=== PATIENT | male | born 1985 | race Two or more races ===

== ENCOUNTER 2024-04-09 12:51 | Inpatient (IN) | payer BC, SELFPAY ==
[2024-04-09] VITALS (8 sets, daily range): BP systolic 139–151; BP diastolic 88–101; PULSE 67–103; RESP 16–67; TEMP 36.2–37.1; O2SAT 98–100; BMI 25.1; BMI 26.1
--- NOTE | 2024-04-09 13:08 | PC.NURSE ---
Pt. here from home to bed 11 for abdominal pain to right upper abdominal quadrant X 6 days, pt. states he has been vomiting, had blood in his stool yesterday, states that his eyes are yellow today, pt. states his urine has a foul smell to it. Pt. states he couldn't take the pain anymore so he came in. Ice chips given.
--- NOTE | 2024-04-09 13:47 | XR_ITS ---
Examination: CT abdomen with intravenous contrast CT pelvis with intravenous contrast 2-D coronal reconstructions 2-D sagittal reconstructions Date and time of exam:May 10, 2023 1649 hrs. Indications: Abdominal pain nausea vomiting beginning 6 days ago. CTDI: vol (mGy) 8.84 DLP: (mGycm) 426 Technique: Multiple axial sections of the abdomen and pelvis have been obtained. 64 slice high-resolution scanner used. 3 mm axial sections have been obtained, post intravenous injection 60 cc [id number] 2-D sagittal, coronal reconstructions obtained. Low dose protocols were performed. One or more of the following dose reduction techniques were used; automated exposure control, adjustment of the mA and/or KV according to patient size, use of iterative reconstruction technique. Findings: No focal liver or splenic lesions Mucosal thickening involving the stomach Prominent gallbladder no stones Suspicious for mild edema about the pancreas No hydronephrosis Aorta normal size 25 mm fat-containing umbilical hernia No bowel obstruction No pericecal inflammatory change No diverticulitis Mild thickening of the urinary bladder wall Tiny fat-containing left inguinal hernia Impression: Gastritis pattern Suspicious for early acute pancreatitis, consider MRCP follow-up
--- NOTE | 2024-04-09 13:49 | EKG_ITS ---
[facility] Test Date: 2024-04-09 Pat Name: DEENA NICE Department: Room: - Gender: Male Personal Financial Advisor: : 1985 Requested By: Maury Oneal Order Number: [id number] Reading MD: Maury Oneal Measurements Intervals [place] Rate: 67 P: 66 CA: 149 QRS: 61 QRSD: 90 T: 47 QT: 370 QTc: 391 Interpretive Statements SINUS RHYTHM No previous ECG available for comparison /store/S0/[id number]/ecg/[id number].pdf
--- NOTE | 2024-04-09 13:49 | XR_ITS ---
Examination: Abdomen sonogram, Limited Date and time of exam: April 09, 2024 1452 hrs. Indications: Epigastric pain and vomiting beginning 3 days ago Technique: Real-time smith scale transabdominal sonographic images of the upper abdomen obtained. Findings: Negative for cholelithiasis, negative for cholecystitis Normal common bile duct Pancreas obscured by bowel gas Liver 17.3 cm fatty liver no focal liver lesions Normal hepatopedal portal venous flow Patent IVC Impression: Negative for cholelithiasis, negative for cholecystitis Mild hepatomegaly fatty liver
--- NOTE | 2024-04-09 13:49 | PC.NURSE ---
Casper RENTERIA bedside going to do a rectal exam pt. states he does not want me bedside for exam, pt. states he does not want a cup setter lockstitch present. Casper RENTERIA states that's ok and for me to document.
--- NOTE | 2024-04-09 13:51 | PD.EDABDPN ---
ED Abdominal Pain RME/HPI General Chief Complaint: Abdominal Pain Stated complaint: ABDOMINAL PAIN Time seen by provider: 04/09/24 13:14 Arrival date/time: 04/09/24 12:51 RME / HPI RME / HPI narrative: 39-year-old male patient with significant history of chronic alcoholism who came in for evaluation regarding abdominal pain. Patient's been having abdominal pain for the last few days, getting worse, location epigastric area, severity 10 out of 10. Patient is worried because earlier today patient vomited coffee-ground vomitus. And note is also blood in the stool. Patient is a chronic alcoholic. Last drink of alcohol this morning. Related Data Previous Rx's ?Medication ?Instructions ?Recorded pantoprazole 40 mg tablet,delayed 40 mg PO QDAY #30 tabs 02/06/24 release (Protonix) Allergies Allergy/AdvReac Type Severity Reaction Status Date / Time No Known Allergies Allergy Verified 02/06/24 15:26 Review of Systems Review of Systems Narrative Review of Systems: Review of system reviewed and within normal limits except mentioned in HPI ED Exam Narrative Physical exam: VITAL SIGNS: Reviewed. GENERAL APPEARANCE: Alert and interactive, follows commands, no acute distress, HEAD AND FACE: Non-traumatic. ENT: PERRL, pink conjunctivitis, eyelid no trauma, Mucous membrane moist. NECK: Supple, nontender, no nuchal rigidity. CHEST: No tenderness, no crepitus, no paradoxical movement, no retractions. LUNGS: Clear, well ventilated, symmetric, no rales, no wheezing, no ronchi, no stridor, good breath sounds bilaterally. HEART: Regular rate, regular rhythm, no murmur, no gallops. ABDOMEN: Soft, positive bowel sounds, nondistended, no guarding, epigastric tenderness, no rebound, no masses, RECTAL: Deferred. GENITAL: Deferred. NEUROLOGICAL: Gross motor function intact sensory function intact, Appropriate for age. MUSCULOSKELETAL: low back nontender, full range of motion. EXTREMITIES: Nontender, full range of motion. SKIN: Color pink, dry, no rash, no lacerations, no abrasions, no contusions. LYMPHATICS: Deferred. Course Quality Measures none Orders Category Date Time Status COVID-19 Screening Questionnaire NOW Care 04/09/24 19:[address] Screening NOW Care 04/09/24 13:50 Active Decision to Admit X1 Care 04/09/24 19:27 Active EKG (ED ONLY) *Do not use* NOW Care 04/09/24 13:49 Completed Occult Blood,Stool (Nursing) ONCE Care 04/09/24 13:[address] abdomen pelvis w con Stat Exams 04/09/24 13:47 Completed EKG (ED Only) Stat Exams 04/09/24 13:49 Draft US gall bladder Stat Exams 04/09/24 13:49 Completed Alcohol, Blood Medical Stat Lab 04/09/24 14:25 Completed CBC Stat Lab 04/09/24 14:25 Completed Comprehensive Metabolic Panel Stat Lab 04/09/24 14:25 Completed Drug Screen,Urine Stat Lab 04/09/24 16:57 Completed Lipase Stat Lab 04/09/24 14:25 Completed Lipid Panel Stat Lab 04/09/24 14:25 Completed Partial Thromboplastin Time Stat Lab 04/09/24 14:25 Completed Prothrombin Time with INR Stat Lab 04/09/24 14:25 Completed UA [Urinalysis] Stat Lab 04/09/24 16:57 Completed Morphine Inj Med 04/09/24 14:30 Discontinued 5 mg IVP X1 ONE Morphine Inj [Morphine Sulf Inj] Med 04/09/24 13:49 Discontinued 5 mg IVP X1 ONE Ondansetron Inj [Zofran Inj] Med 04/09/24 13:47 Discontinued 4 mg IV X1 ONE Pantoprazole Inj [Protonix Inj] Med 04/09/24 13:47 Discontinued 80 mg IV X1 ONE Sodium Chloride 0.9% 1000 ml [Ns] 1,000 ml Med 04/09/24 13:49 Discontinued IV 999 mls/hr Vital Signs Vital signs: Vital Signs Temperature 98.2 F 04/09/24 12:52 Pulse Rate 103 H 04/09/24 12:52 Respiratory Rate 22 H 04/09/24 12:52 Blood Pressure 147/88 H 04/09/24 12:52 Pulse Oximetry (%) 99 04/09/24 12:52 Oxygen Delivery Method Room Air 04/09/24 12:52 Abdominal Pain MDM MDM Narrative MDM Narrative:: 39-year-old male patient with significant history of chronic alcoholism who came in for evaluation regarding abdominal pain. Patient's been having abdominal pain for the last few days, getting worse, location epigastric area, severity 10 out of 10. Patient is worried because earlier today patient vomited coffee-ground vomitus. And note is also blood in the stool. Patient is a chronic alcoholic. Last drink of alcohol this morning. Laboratory workup is significant for elevated alcohol level of 117. Patient's lipase was noted to be 62. CT scan of the abdomen showed acute mild pancreatitis. Patient still having epigastric pain. Plan of care discussed with the patient and the need to admit for early pancreatitis. And intractable abdominal pain. Patient agrees with the plan. Patient data External records reviewed:: None Clinical information provided by:: patient Social determinants that could affect healthcare access:: alcohol use Patient has the following chronic illnesses:: Chronic alcoholism How is presenting disease/condition affected by chronic disease/condition?: exacerbated by Evaluation data The following diagnostics were reviewed and interpreted by me:: lab results, radiology exam(s) and EKG tracing(s) Lab and/or radiology exams considered but not ordered:: None Interpretation Summary: EKG as interpreted by me showed sinus rhythm, ventricular rate of 67 bpm, no ST segment elevation depression noted. CT scan of the abdomen and pelvis showed Gastritis pattern Suspicious for early acute pancreatitis, consider MRCP follow-up Ultrasound also came back unremarkable. Laboratory workup is significant for alcohol level of 117, lipase is 62. Medications / Prescriptions Medications or Prescriptions considered but not ordered:: None Medication administrations:: Medication Administration History Discontinued Medications Sodium Chloride (Ns) 1,000 mls @ 999 mls/hr IV .Q1H1M ONE Stop: 04/09/24 14:49 Last Infusion: 04/09/24 15:35 Dose: Infused Documented By: Admin: 04/09/24 14:34 Dose: 999 mls/hr Documented By: Morphine Sulfate (Morphine Sulf Inj 4 Mg/Ml Vial) 5 mg IVP X1 ONE Stop: 04/09/24 13:50 Last Admin: 04/09/24 19:04 Dose: Not Given Documented By: ED Non-Admin Reason: Duplicate Medication on eMAR Morphine Sulfate (Morphine Sulf Inj 10 Mg/Ml Vial) 5 mg IVP X1 ONE Stop: 04/09/24 14:31 Last Admin: 04/09/24 14:36 Dose: 5 mg Documented By: Ondansetron HCl (Ondansetron Inj 2 Mg/Ml Inj 2 Ml) 4 mg IV X1 ONE; Protocol Stop: 04/09/24 13:48 Last Admin: 04/09/24 14:31 Dose: 4 mg Documented By: MARIA VICTORIA Pantoprazole Sodium (Pantoprazole Inj 40 Mg Vial) 80 mg IV X1 ONE Stop: 04/09/24 13:48 Last Admin: 04/09/24 14:28 Dose: 80 mg Documented By: MARIA VICTORIA Ibuprofen aches, Zofran, morphine, and IV fluids for hydration. Consultations Consultation(s) initiated? (list below): No Diagnosis Differential diagnosis abdominal pain: abdominal pain, pancreatitis and other (Gastritis) Most likely diagnosis given after review of the tests above:: Acute pancreatitis, gastritis, coffee-ground vomitus, chronic alcoholism Admission Indicated Admission indicated?: indicated Explain why admission is indicated or not indicated:: Patient is to be admitted for early acute pancreatitis, coffee-ground vomitus, and gastritis, chronic alcoholism Admission Request Was there a request for admission?: Yes Admission Attestation Admission request attestation: Discussed case with [Dr. Farmer] from Hospitalist service regarding admission. Discussed patients ED course, exam findings, labs, and radiology results. The Hospitalist [agrees,] to accept the patient for admission. Disposition Plan Disposition Plan: Admit Discharge Plan Plan Patient Disposition: Admit Acute Care w/in Hospital Prescriptions/Referrals Prescriptions/Med Rec: No Action pantoprazole [Protonix] 40 mg tablet,delayed release (DR/EC) 40 mg PO QDAY Qty: 30 0RF Referrals: Jana Dominguez MD [Primary Care Provider] - In 1 week Problem List Clinical Impression: Acute alcoholic pancreatitis, Gastritis, Coffee ground vomiting Patient/Caregiver Discharge Instructions Print Language: Bur[place]ian Stand Alone Forms: Jocelin Award Info., Patient Portal Info Letter
[2024-04-09] MEDS: PANTOPRAZOLE INJ 40 MG VIAL 80 MG IV (14:28)
[2024-04-09] MEDS: ONDANSETRON INJ 2 MG/ML INJ 2 ML 4 MG IV (14:31)
[2024-04-09] MEDS: SODIUM CHLORIDE 0.9% 1000 ML 1,000 ML 999 ML IV (14:34)
[2024-04-09] MEDS: MORPHINE SULF INJ 10 MG/ML VIAL 5 MG IVP (14:36)
[2024-04-09 14:52] LABS: Alanine Aminotransferase 54 U/L (10-49); Albumin, Serum 4.8 gm/dL (3.5-5.0); Albumin/Globulin Ratio 2.3 (1.2-2.2); Alcohol, Blood Medical 117.5 mg/dL (0-10.0); Alkaline Phosphatase 77 U/L (46-116); Anion Gap 10 (7-16); Aspartate Amino Transferase 52 U/L (0-34); BUN/Creatinine Ratio 15 Ratio (12-20); Bilirubin,Total 1.1 mg/dL (0.3-1.2); Blood Urea Nitrogen 15 mg/dL (9-23); Calcium 9.9 mg/dL (8.3-10.6); Calcium (Corrected) 9.9 mg/dL (8.5-10.1); Carbon Dioxide 27.5 mMol/L (20.0-31.0); Chloride 99 mMol/L (98-107); Estimated Creatinine Clearance 101.4 mL/min (>60); Globulin 2.1 gm/dL (2.3-3.5); Glucose 136 mg/dL (74-106); Lipase 62 U/L (12-53); Osmolality,Calculated 274 (275-295); Potassium 4.1 mMol/L (3.4-5.1); Sodium 136 mMol/L (136-145); Total Protein 6.9 gm/dL (5.7-8.2); eGFR > 60 See Note
[2024-04-09 15:01] LABS: Basophils % (Auto) 1 % (0-2.5); Eosinophils % (Auto) 0 % (0-10); Hematocrit 42.2 % (41.0-53.0); Hemoglobin 15.6 g/dL (13.5-16.0); Immature Granulocytes % (Auto) 0 % (0-0); Immature Granulocytes Auto 0.01 Thou/mm3 (0.00-0.00); Lymphocytes # (Auto) 2.1 Thou/mm3 (1.0-4.8); Lymphocytes % (Auto) 27 % (10-50); Mean Corpuscular Hemoglobin 29.7 pg (25.0-35.0); Mean Corpuscular Volume 80 fL (80-100); Monocytes # (Auto) 0.3 Thou/mm3 (0.0-0.8); Monocytes % (Auto) 4 % (0-12); Neutrophils # (Auto) 5.3 Thou/mm3 (1.8-7.7); Neutrophils % (Auto) 69 % (37-80); Nucleated Red Blood Cell % 0 /100 WBC (0); Platelet Count 182 Thou/mm3 (140-440); RDW Standard Deviation 34.8 fL (35.1-43.9); Red Blood Count 5.26 Miln/mm3 (4.50-5.90); White Blood Count 7.7 Thou/mm3 (3.8-10.6)
[2024-04-09 15:09] LABS: INR 1.4 (0.9-1.3); Partial Thromboplastin Time 26.6 Seconds (22.0-36.0); Prothrombin Time 14.6 Seconds (9.0-12.2)
[2024-04-09 15:13] LABS: Cardiac Risk Estimate 2.5 RATIO (4.0-6.7); Cholesterol 111 mg/dL (132-200); HDL Cholesterol 45 mg/dL (40-60); LDL Cholesterol,Calculated -13 mg/dL (0-130); Triglycerides 394 mg/dL (30-150)
[2024-04-09 17:14] LABS: Collection Type, Urine Clean Catch; RBC,Urine 0 /hpf (0-3); Squamous Epithelial Cell,Urine 0 /hpf (0-5); WBC,Urine 0 /hpf (0-5)
[2024-04-09 17:33] LABS: Amorphous Crystals,Urine Present (Absent); Bilirubin,Urine Negative (Negative); Blood,Urine Negative (Negative); Glucose, Urine Negative (Negative); Ketones,Urine Negative (Negative); Leukocyte Esterase,Urine Negative (Negative); Nitrite,Urine Negative (Negative); Protein,Urine Trace (Neg - Trace); Specific Gravity,Urine 1.017 (1.001-1.035); Urobilinogen,Urine Negative mg/dL (0.0-1.0)
[2024-04-09 17:36] LABS: Clarity,Urine Turbid (Clear/Hazy); Color,Urine Yellow (Lt Yel-Yel)
[2024-04-09 17:37] LABS: Amphetamine/Methamp Scrn,U Negative (Negative); Barbiturate Screen,Urine Negative (Negative); Benzodiazepines Screen,Urine Negative (Negative); Benzoylecgonine Screen, Ur Negative (Negative); Fentanyl Screen,Urine Negative (Negative); Opiate Screen,Urine Positive (Negative); THC Screen,Urine Negative (Negative)
--- NOTE | 2024-04-09 20:40 | PD.RESHP ---
Documentation for date of: 04/09/24 [facility] History of Present Illness History of present illness: The patient is a 39-year-old male with a history of anxiety and alcohol use who presented to the ED on 04/09/2024 with complaints of abdominal pain, nausea and vomiting started about 5 days ago. Patient reports that pain which is why he taken 5 days mostly located in the epigastrium and periumbilical region, with some occasional radiation to the right upper quadrant but no radiation to the back. He also endorses nausea and consistent vomiting for the past 5 days, loss of appetite and no bowel movement. Additionally, patient reports that on day 3 he started to notice some coffee-ground vomiting and dark stool, attributing it to multiple bouts and increased intensity of vomiting. Per patient, he avoids going to doctors which is why it took 5 days to present to the ED especially with the added possible blood in his vomitus. Last episode of vomiting was just before presentation to the hospital. Patient endorses drinking heavily over the past couple days since he lost his job and mentions that he has been drinking since he was 15 and occasionally stops but has been drinking a lot more in the last week. Since his symptoms started 5 days ago he has continued drinking because he thought that it helped his symptoms albeit temporarily, last drink was in the early hours of today. He reports having similar episode in the past when he was about 19 years old and also the time that he had acute pancreatitis. He denied fever, chills, diarrhea. ED course: In the ED, patient was noted to be afebrile, normotensive and saturating 99% on room air. Labs showed WBC 7.7 Hgb 15.6 PLT 182 PT 14.6 INR 1.4 NA 130 6K4.1 CL 99 bicarb 27.5 BUN 15 CR 1.0 glucose 136 triglyceride 394 LDL -13 lipase 62 UA showed a pH of 8 and amorphous crystals, U-Tox is positive for opioids and through alcohol level of 117.5. CT abdomen pelvis was done showed early acute pancreatitis and gallbladder ultrasound was negative for cholelithiasis or cholecystitis. In the ED, patient received morphine and Zofran as well as 1 L of NS. He is being admitted for management of acute pancreatitis. Review of Systems Review of Systems Narrative Review of Systems: GENERAL: Denies fevers/chills or diaphoresis. HEENT: Denies headache or visual/hearing changes. Denies nasal discharge. NEURO: Denies unusual weakness or difficulty speaking. CARDIO: Denies chest pain or palpitations. PULM: Denies SOB, coughing, or wheezing. GI: Admits abdominal pain, nausea and vomiting, coffee-ground vomiting, melena. URO: Denies burning/itching/pain/urinary changes. MSK/EXT/SKIN: Denies joint/skeletal/muscle pain, issues/changes in upper or lower extremities, itchiness, or superficial pain. PSYCH: Cooperative, pleasant mood & affect. Exam Vital Signs Temp Pulse Resp BP Pulse Ox O2 Del Method 98.6 F 68 67 H 144/101 H 99 Room Air 04/09/24 20:00 04/09/24 20:00 04/09/24 20:00 04/09/24 20:00 04/09/24 20:00 04/09/24 20:00 Narrative Exam GENERAL: AAOX3 NEURO: CHIROPRACTIC NEUROLOGIST grossly intact, moves extremities x4 HEENT: Moist mucosa. Eyes open, symmetrical, & clear CARDIO: No chest pain on palpation. Heart RRR, no obvious murmurs PULM: No noted coughing/dyspnea. Lungs CTA B/L, no R/W/R GI: Abdomen soft, bloatedness, tenderness to palpation in the epigastrium and umbilical region. URO/SOCIAL SCIENCES RESEARCH SCIENTIST:: No further abnormalities noted. SKIN/MSK/EXT: No wounds/rashes/edema/amputations, no pain on palpation. Pedal pulses present B/L Results: Labs 04/10/24 04:49 04/10/24 04:49 Labs: Short CBC 04/09/24 Range/Units 14:25 WBC 7.7 (3.8-10.6) Thou/mm3 Hgb 15.6 (13.5-16.0) g/dL Hct 42.2 (41.0-53.0) % Plt Count 182 (140-440) Thou/mm3 BMP 04/09/24 14:25 Sodium 136 Potassium 4.1 Chloride 99 Carbon Dioxide 27.5 BUN 15 Creatinine 1.0 Glucose 136 H Calcium 9.9 Liver Function 04/09/24 Range/Units 14:25 Total Bilirubin 1.1 (0.3-1.2) mg/dL AST 52 H (0-34) U/L ALT 54 H (10-49) U/L Alkaline Phosphatase 77 (46-116) U/L Albumin 4.8 (3.5-5.0) gm/dL Urine 04/09/24 Range/Units 16:57 Urine Color Yellow (Lt Yel-Yel) Urine Clarity Turbid A (Clear/Hazy) Urine pH 8.0 H (5.0-7.0) Ur Specific [place] 1.017 (1.001-1.035) Urine Protein Trace (Neg - Trace) Urine Glucose (UA) Negative (Negative) Quality Measures Quality Measures none Medications Home Medications and Allergies Allergies Allergy/AdvReac Type Severity Reaction Status Date / Time No Known Allergies Allergy Verified 02/06/24 15:26 Visit Medications Acetaminophen (Acetaminophen 325 Mg Tablet) 650 mg PO Q6H PRN PRN Reason: Pain (1-3) or Fever >100.3 Stop: 05/09/24 20:18 Hydrocodone Bitart/Acetaminophen (Hydrocodone/Apap 5/325 Tablet) 1 tab PO Q4HR PRN PRN Reason: Pain Scale 4-10 (Moderate-donovan Stop: 04/14/24 20:23 Sodium Chloride (Ns) 1,000 mls @ 150 mls/hr IV .Q6H40M ONE Stop: 04/10/24 03:09 Ondansetron HCl (Ondansetron Inj 2 Mg/Ml Inj 2 Ml) 4 mg IV Q6H PRN; Protocol PRN Reason: NAUSEA OR VOMITING Stop: 05/09/24 20:18 Sennosides (Senna Tablet) 1 tab PO QDAY YURIY; Protocol Stop: 05/10/24 08:59 Discontinued Medications Sodium Chloride (Ns) 1,000 mls @ 999 mls/hr IV .Q1H1M ONE Stop: 04/09/24 14:49 Last Infusion: 04/09/24 15:35 Dose: Infused Morphine Sulfate (Morphine Sulf Inj 4 Mg/Ml Vial) 5 mg IVP X1 ONE Stop: 04/09/24 13:50 Last Admin: 04/09/24 19:04 Dose: Not Given Morphine Sulfate (Morphine Sulf Inj 10 Mg/Ml Vial) 5 mg IVP X1 ONE Stop: 04/09/24 14:31 Last Admin: 04/09/24 14:36 Dose: 5 mg Ondansetron HCl (Ondansetron Inj 2 Mg/Ml Inj 2 Ml) 4 mg IV X1 ONE; Protocol Stop: 04/09/24 13:48 Last Admin: 04/09/24 14:31 Dose: 4 mg Pantoprazole Sodium (Pantoprazole Inj 40 Mg Vial) 80 mg IV X1 ONE Stop: 04/09/24 13:48 Last Admin: 04/09/24 14:28 Dose: 80 mg Assessment & Plan Assessment Summary: The patient is a 39-year-old male with a history of anxiety and alcohol use presented to the ED on 04/09/2024 with complaints of abdominal pain, nausea and vomiting started about 5 days ago. Imaging positive for signs of acute pancreatitis. #Acute pancreatitis #Alcohol use disorder #Coffee-ground emesis The patient presented with a 5-day history of abdominal pain, nausea and vomiting that started after a long period of drinking due to the fact that he lost his job. On day 3, patient noticed some coffee-ground vomiting with increased bouts and intensity as well as melena although he is not sure what he saw. He reports having similar episode in the past when he was about 19 years old and also the time that he had acute pancreatitis. He has been binge drinking about the past week and continued evident that the symptoms started as a seem to help temporarily, last drink was in the early hours of today. CBC was unremarkable, CMP showed slightly elevated liver enzymes and triglyceride of 394. U tox positive for opioids (patient received morphine) and negative alcohol level of, 7.5. CT abdomen pelvis showed suspicion for early pancreatitis and gallbladder ultrasound was negative. Patient received morphine and 1 L of NS and Zofran in ED. Patient wants to start on clear liquid diet as she has been able to tolerate fluids all day. Plan: -Admit to med telemetry -IV fluids at 150 cc/h -Clear liquid diet, advance as tolerated -Pain management with [place] (patient does not want morphine unless absolutely necessary) -Zofran as needed -Pantoprazole 40 mg daily -[facility] protocol -Continue to monitor H&H, consider GI consult if downtrending or coffee-ground emesis continues. Health maintenance: Dispo: MedTele Diet: Clear liquid GI: Pantoprazole DVT: SCD (Abnormal PT, INR) Lines: Peripheral PT: Not ordered Code: Full Case was discussed with attending physician, Dr Sejal Dupont MD PGY-1 Attending Provider Attestation/Addendum 39-year-old male patient with alcoholism presented with coffee-ground emesis, abdominal pain mainly in the epigastric region. Patient denies weight loss. Patient has minimally elevated lipase level. He will be admitted. Patient will be referred to GI. He will start on Protonix IV.
[2024-04-09 20:55] LABS: Magnesium 1.9 mg/dL (1.6-2.6); Phosphorous 2.9 mg/dL (2.4-5.1)
[2024-04-09] MEDS: FOLIC ACID 1 MG TABLET PO (21:04)
[2024-04-09] MEDS: THIAMINE 100 MG TABLET PO (21:04)
[2024-04-09] MEDS: HYDROcodone/APAP 5/325 TABLET 1 TAB PO (21:22)
[2024-04-09] MEDS: SODIUM CHLORIDE 0.9% 1000 ML 1,000 ML 150 ML IV (22:25)
[2024-04-10] VITALS (12 sets, daily range): BP systolic 140–158; BP diastolic 91–102; PULSE 57–88; RESP 16–98; TEMP 36.1–36.8; O2SAT 95–99
[2024-04-10] MEDS: HYDROcodone/APAP 5/325 TABLET 1 TAB PO ×4 (02:12→20:43)
[2024-04-10 05:43] LABS: Basophils % (Auto) 0 % (0-2.5); Eosinophils # (Auto) 0.1 Thou/mm3 (0.0-0.5); Eosinophils % (Auto) 1 % (0-10); Hematocrit 38.2 % (41.0-53.0); Hemoglobin 14.2 g/dL (13.5-16.0); Immature Granulocytes % (Auto) 0 % (0-0); Immature Granulocytes Auto 0.03 Thou/mm3 (0.00-0.00); Lymphocytes # (Auto) 2.8 Thou/mm3 (1.0-4.8); Lymphocytes % (Auto) 30 % (10-50); Mean Corpuscular HGB Conc 37.2 g/dl (31.0-37.0); Mean Corpuscular Hemoglobin 30.4 pg (25.0-35.0); Mean Corpuscular Volume 82 fL (80-100); Monocytes # (Auto) 0.5 Thou/mm3 (0.0-0.8); Monocytes % (Auto) 5 % (0-12); Neutrophils # (Auto) 5.8 Thou/mm3 (1.8-7.7); Neutrophils % (Auto) 63 % (37-80); Nucleated Red Blood Cell % 0 /100 WBC (0); Platelet Count 144 Thou/mm3 (140-440); RDW Standard Deviation 35.8 fL (35.1-43.9); Red Blood Count 4.67 Miln/mm3 (4.50-5.90); White Blood Count 9.2 Thou/mm3 (3.8-10.6)
[2024-04-10 06:07] LABS: Alanine Aminotransferase 41 U/L (10-49); Albumin, Serum 4.2 gm/dL (3.5-5.0); Albumin/Globulin Ratio 2.2 (1.2-2.2); Alkaline Phosphatase 65 U/L (46-116); Anion Gap 7 (7-16); Aspartate Amino Transferase 36 U/L (0-34); BUN/Creatinine Ratio 13 Ratio (12-20); Bilirubin,Total 1.6 mg/dL (0.3-1.2); Blood Urea Nitrogen 13 mg/dL (9-23); Carbon Dioxide 27.1 mMol/L (20.0-31.0); Chloride 100 mMol/L (98-107); Estimated Creatinine Clearance 101.4 mL/min (>60); Globulin 1.9 gm/dL (2.3-3.5); Glucose 113 mg/dL (74-106); Magnesium 1.7 mg/dL (1.6-2.6); Osmolality,Calculated 269 (275-295); Phosphorous 3.2 mg/dL (2.4-5.1); Potassium 4.5 mMol/L (3.4-5.1); Sodium 134 mMol/L (136-145); Thyroid Stimulating Hormone 5.82 uIU/mL (0.55-4.78); Total Protein 6.1 gm/dL (5.7-8.2); eGFR > 60 See Note
[2024-04-10 06:37] LABS: INR 1.3 (0.9-1.3); Partial Thromboplastin Time 26.7 Seconds (22.0-36.0); Prothrombin Time 13.9 Seconds (9.0-12.2)
[2024-04-10] MEDS: FOLIC ACID 1 MG TABLET PO ×2 (08:11→20:38)
[2024-04-10] MEDS: SENNA TABLET 1 TAB PO (08:11)
[2024-04-10] MEDS: THIAMINE 100 MG TABLET PO ×2 (08:11→20:38)
[2024-04-10] MEDS: PANTOPRAZOLE INJ 40 MG VIAL IV ×2 (08:11→20:38)
--- NOTE | 2024-04-10 08:12 | PD.RESPRO ---
Documentation for date of: 04/10/24 Subjective Subjective Interval history: No acute overnight events. Has mild bilateral upper extremity tremor, no seizure activity. Tolerating soft diet without nausea or vomiting. Denies fever, chills, headaches, chest pain, sob, cough, GI or urinary symptoms. Exam Vital Signs Temp Pulse Resp BP Pulse Ox O2 Del Method 97.0 F 57 L 18 144/91 H 99 Room Air 04/10/24 08:00 04/10/24 08:00 04/10/24 08:00 04/10/24 08:00 04/10/24 08:00 04/10/24 08:00 Narrative Exam GENERAL: Normal appearing adult male, mild distress due to pain. HEENT: NCAT.?SELVIN. Oral mucosa is moist. Patent Nares NECK: Supple, nontender, no thyromegaly, no meningismus, no JVD, no step offs CHEST: Symmetrical, atraumatic, and with equal expansion, Nontender on palpation no deformity and no crepitus. CARDIOVASCULAR: RRR, no m/g/r LUNGS: CTAB, no w/r/r. Symmetrical chest rise. No intercostal subcostal retraction. ABDOMEN: Soft, flat, nontender. No guarding/rebound tenderness/masses. +BS EXTREMITIES: Nontender.? No edema/cyanosis.?Moves all 4 extremities well, with full ROM and good CSM. SKIN: Warm and dry, no jaundice/rashes. MSK: No lumbar or midline, no CVA, no paraspinal muscle spasm or tenderness. NEURO: RAZA x4, CN II-XII grossly intact.?No focal neurologic deficits. PSYCHIATRIC: Normal mood and affect, cooperative, no SI or HI or hallucinations. Objective Labs 04/11/24 05:36 04/11/24 05:36 Labs: Laboratory Results - last 24 hr 04/09/24 04/09/24 04/10/24 14:25 16:57 04:49 WBC 7.7 9.2 RBC 5.26 4.67 Hgb 15.6 14.2 Hct 42.2 38.2 L MCV 80 82 MCH 29.7 30.4 MCHC 37.0 37.2 H RDW Std Deviation 34.8 L 35.8 Plt Count 182 144 D Neut % (Auto) 69 63 Lymph % (Auto) 27 30 [place] % (Auto) 4 5 Eos % (Auto) 0 1 Baso % (Auto) 1 0 Neut # (Auto) 5.3 5.8 Lymph # (Auto) 2.1 2.8 [place] # (Auto) 0.3 0.5 Eos # (Auto) 0.0 0.1 Baso # (Auto) 0.0 0.0 Immature Gran # (Auto) 0.01 H 0.03 H Absolute Nucleated RBC 0.00 0.00 Immature Gran % 0 0 Nucleated RBC % 0 0 PT 14.6 H 13.9 H INR 1.4 H 1.3 APTT 26.6 26.7 Sodium 136 134 L Potassium 4.1 4.5 Chloride 99 100 Carbon Dioxide 27.5 27.1 Anion Gap 10 7 BUN 15 13 Creatinine 1.0 1.0 Estim Creat Clear Calc 101.4 101.4 eGFR > 60 > 60 BUN/Creatinine Ratio 15 13 Glucose 136 H 113 H Calculated Osmolality 274 L 269 L Calcium 9.9 9.0 Corrected Calcium 9.9 9.0 Phosphorus 2.9 3.2 Magnesium 1.9 1.7 Total Bilirubin 1.1 1.6 H D AST 52 H 36 H ALT 54 H 41 Alkaline Phosphatase 77 65 Total Protein 6.9 6.1 Albumin 4.8 4.2 D Globulin 2.1 L 1.9 L Albumin/Globulin Ratio 2.3 H 2.2 Triglycerides 394 H Cholesterol 111 L LDL Cholesterol, Calc -13 L HDL Cholesterol 45 Cholesterol/HDL Ratio 2.5 L Lipase 62 H TSH 5.82 H Ur Collection Type Clean Catch Urine Color Yellow Urine Clarity Turbid A Urine pH 8.0 H Ur Specific [place] 1.017 Urine Protein Trace Urine Glucose (UA) Negative Urine Ketones Negative Urine Blood Negative Urine Nitrite Negative Urine Bilirubin Negative Urine Urobilinogen (Auto) Negative Ur Leukocyte Esterase Negative Urine RBC 0 Urine WBC 0 Ur Squamous Epith Cells 0 Amorphous Crystals Present A Urine Bacteria None Urine Opiates Screen Positive A Urine Fentanyl Screen Negative Ur Barbiturates Screen Negative U Amphetamin/Meth Scrn Negative U Benzodiazepines Scrn Negative U Cocaine Metab Screen Negative U Marijuana (THC) Screen Negative Ethyl Alcohol 117.5 H Quality Measures Quality Measures none Assessment & Plan Assessment Current Active Medications: Generic Name Dose Route Start Last Admin Trade Name Freq PRN Reason Stop Dose Admin Acetaminophen 650 mg 04/09/24 20:19 Acetaminophen 325 Mg Tablet PO 05/09/24 20:18 Q6H PRN Pain (1-3) or Fever >100.3 Hydrocodone Bitart/Acetaminophen 1 tab 04/09/24 20:24 04/10/24 06:38 Hydrocodone/Apap 5/325 Tablet PO 04/14/24 20:23 1 tab Q4HR PRN Administration Pain Scale 4-10 (Moderate-donovan Folic Acid 1 mg 04/09/24 21:00 04/10/24 08:11 Folic Acid 1 Mg Tablet PO 04/14/24 20:59 1 mg BID YURIY Administration Lorazepam 0.5 mg 04/09/24 20:47 Lorazepam 0.5 Mg Tablet PO 04/14/24 20:46 Q4HR PRN CIWA Score 2-6 Lorazepam 1 mg 04/10/24 04:21 Lorazepam 0.5 Mg Tablet PO 04/15/24 04:20 Q4HR PRN CIWA SCORE 7-11 Lorazepam 2 mg 04/10/24 04:21 Lorazepam 0.5 Mg Tablet PO 04/15/24 04:20 Q4HR PRN CIWA SCORE 12-15 Ondansetron HCl 4 mg 04/09/24 20:19 Ondansetron Inj 2 Mg/Ml Inj 2 Ml IV 05/09/24 20:18 Q6H PRN NAUSEA OR VOMITING Protocol Pantoprazole Sodium 40 mg 04/10/24 09:00 04/10/24 08:11 Pantoprazole Inj 40 Mg Vial IV 05/10/24 08:59 40 mg BID YURIY Administration Sennosides 1 tab 04/10/24 09:00 04/10/24 08:11 Senna Tablet PO 05/10/24 08:59 1 tab QDAY YURIY Administration Protocol Thiamine HCl 100 mg 04/09/24 21:00 04/10/24 08:11 Thiamine 100 Mg Tablet PO 04/14/24 20:59 100 mg BID YURIY Administration Plan In summary: 39-year-old male with a history of anxiety and alcohol use presented to the ED on 04/09/2024 with complaints of abdominal pain, nausea and vomiting started about 5 days ago, admitted for acute pancreatitis and possible GI bleed. # Acute pancreatitis # Alcohol use disorder Chronic alcohol user, daily, admitted to binge drinking last 5 days 5 days of abdominal pain, nausea and vomiting ground coffee emesis and dark stool U tox positive for opiates, alcohol 117.5 CT abdomen early pancreatitis, gallbladder ultrasound negative Triglyceride 394 Patient did not tolerate MORPHINE, preferred NORCO ? Med/tele ? IV fluid at 150 cc/hour ? Continue ZOFRAN PRN ? Continue PROTONIX 40 mg daily ? CIWA protocol ? Given one-time LORAZEPAM for tremors ? Added DILTIAZEM 10 mg x 1 PRN for CIWA >17 ? Advance diet as tolerated ? Give banana bag one-time ? Consulted on alcohol cessation # Coffee-ground emesis 5 days abdominal pain, nausea/vomiting, ground coffee emesis Single episode of dark stool prior to admission, had normal BM this morning No history of liver disease, likely variceal bleed, no indication for OCTREOTIDE at this time Hemoglobin 14.2 ? Continue PROTONIX 40 mg daily ? Started OCTRIOTIDE ggt per GI ? GI consulted, appreciate recommendations ? Medical blood test # Elevated blood pressure No history of hypertension, BP 147/88 on admission, currently 140/91 DDx: Reactive versus primary hypertension ? Continue monitoring ? Consider ANTIHYPERTENSIVE as indicated # Hypothyroidism TSH 5.83, sick thyroid syndrome vs true hypothyroidism ? Follow-up free T4 # HTN, New Onset BP consistently elevated, 149/99 ? Started LISINOPRIL 10 mg daily ? Daily vitals Health maintenance Diet: NPO GI prophylaxis: PROTONIX DVT prophylaxis: SCDs Antibiotics: None CODE STATUS: Full code Disposition: Pending EGD Patient case was discussed with attending, Hipolito Harrison MD and senior residents Dr. Del Rosario and Dr. Croft. Rosa M Barber DO PGYI Attending Provider Attestation/Addendum I reviewed labs, imaging, EKG, home medications and prior available records. Face to face evaluation was performed by me. I have personally examined the patient and discussed assessment and plan with the IM team. I reviewed the resident note and agree with the plan with exceptions as below. Acute pancreatitis: Alcohol induced. Started IV hydration. Management of pain/nausea as needed. Counseled the patient regarding the importance of alcohol cessation. Upper GI bleed: Started the patient on PPI twice daily. Consulted GI for EGD. Abnormal TSH: Ordered free T4. Alcohol abuse: Counseled the patient regarding the importance of alcohol cessation. CIWA monitoring. Start thiamine and folic acid.
[2024-04-10] MEDS: LORazepam 2 MG/ML VIAL IVP (09:25)
[2024-04-10] MEDS: Magnesium Sulfate 2 GM Ivpb 2 GM/50 ML BAG IV (09:25)
[2024-04-10] MEDS: DIAZEPAM INJ 5 MG/ML VIAL 2 ML 10 MG IVP (09:25)
--- NOTE | 2024-04-10 11:29 | PD.IMCONS ---
HPI Data of Consult Requesting Physician: Armando Post MD Primary Care Provider: Jana Dominguez MD Consult Narrative Reason for consult: Coffee-ground hematemesis History of present illness: 39 years old male who has a longstanding history of alcohol abuse presented to hospital with coffee-ground hematemesis and abdominal pain Patient is lipase level was 62 CT scan of the abdomen pelvis with contrast showed pancreatitis However gallbladder ultrasound shows no cholelithiasis cc:: cc: Armando Post MD Review of Systems Review of Systems Systems Reviewed: All systems reviewed, normal except as documented Past Medical History Surgical History OTHER SURGICAL HX: As in history of present illness Meds Home Medications and Allergies Allergies Allergy/AdvReac Type Severity Reaction Status Date / Time No Known Allergies Allergy Verified 02/06/24 15:26 Exam Vital Signs Temp Pulse Resp BP Pulse Ox O2 Del Method 97.0 F 57 L 18 144/91 H 99 Room Air 04/10/24 08:00 04/10/24 08:00 04/10/24 08:00 04/10/24 08:00 04/10/24 08:00 04/10/24 08:00 Constitutional Comments: Alert oriented Routine Respiratory Exam Comments: Normal to auscultation Routine Abdominal Exam Comments: Soft midepigastric tenderness Results Labs 04/10/24 04:49 04/10/24 04:49 Labs: Short CBC 04/09/24 04/10/24 Range/Units 14:25 04:49 WBC 7.7 9.2 (3.8-10.6) Thou/mm3 Hgb 15.6 14.2 (13.5-16.0) g/dL Hct 42.2 38.2 L (41.0-53.0) % Plt Count 182 144 D (140-440) Thou/mm3 BMP 04/09/24 04/10/24 14:25 04:49 Sodium 136 134 L Potassium 4.1 4.5 Chloride 99 100 Carbon Dioxide 27.5 27.1 BUN 15 13 Creatinine 1.0 1.0 Glucose 136 H 113 H Calcium 9.9 9.0 Liver Function 04/09/24 04/10/24 Range/Units 14:25 04:49 Total Bilirubin 1.1 1.6 H D (0.3-1.2) mg/dL AST 52 H 36 H (0-34) U/L ALT 54 H 41 (10-49) U/L Alkaline Phosphatase 77 65 (46-116) U/L Albumin 4.8 4.2 D (3.5-5.0) gm/dL Urine 04/09/24 Range/Units 16:57 Urine Color Yellow (Lt Yel-Yel) Urine Clarity Turbid A (Clear/Hazy) Urine pH 8.0 H (5.0-7.0) Ur Specific [place] 1.017 (1.001-1.035) Urine Protein Trace (Neg - Trace) Urine Glucose (UA) Negative (Negative) Assessment and Plan Additional Assessment & Plan Additional Plan: # Coffee-ground hematemesis in the setting of alcohol abuse Differential diagnosis include # Gastric mucosal bleeding due to chronic abuse of alcohol resulting in hypertensive portal gastropathy # Possible esophageal variceal bleed # Gabi-Wilkins tear # Peptic ulcer disease # Alcohol induced pancreatitis Plan IV Protonix Octreotide infusion Serial CBC Consent obtained for fiberoptic esophagogastroduodenoscopy with possible therapeutic intervention possible biopsy under intravenous moderate sedation scheduled for tomorrow I was called to do the case today however patient was felt and there is not enough n.p.o. interval to do the procedure safely as the risk of aspiration would be high Complete abstain from alcohol Thank you very much for the opportunity to participate in the care of this patient
--- NOTE | 2024-04-10 13:25 | PC.NURSE ---
report given to Shahnaz PRETTY from Endoscopy, all questions answered.
--- NOTE | 2024-04-10 14:11 | PC.NURSE ---
per Shahnaz PRETTY from Endo, pt to have EGD tomorrow 04/11.
[2024-04-10] MEDS: LORazepam 0.5 MG TABLET 2 MG PO ×2 (15:09→20:38)
[2024-04-10] MEDS: ONDANSETRON INJ 2 MG/ML INJ 2 ML 4 MG IV (17:42)
[2024-04-10] MEDS: LORazepam 0.5 MG TABLET PO (18:01)
[2024-04-10] MEDS: Lisinopril 2.5 MG TABLET 10 MG PO (18:01)
[2024-04-10] MEDS: OCTREOTIDE ACET INJ 1,000 MCG in SODIUM CHLORIDE 0.9% 100 ML 5.1 MCG IV (18:03)
[2024-04-11] VITALS (22 sets, daily range): BP systolic 103–150; BP diastolic 66–105; PULSE 71–136; RESP 9–98; TEMP 35.9–36.9; O2SAT 96–99; BMI 26.0
[2024-04-11] MEDS: LORazepam 0.5 MG TABLET 2 MG PO ×4 (03:14→21:57)
[2024-04-11] MEDS: HYDROcodone/APAP 5/325 TABLET 1 TAB PO ×2 (04:17→13:26)
[2024-04-11 06:13] LABS: Basophils % (Auto) 0 % (0-2.5); Eosinophils # (Auto) 0.1 Thou/mm3 (0.0-0.5); Eosinophils % (Auto) 1 % (0-10); Hemoglobin 15.4 g/dL (13.5-16.0); Immature Granulocytes % (Auto) 0 % (0-0); Immature Granulocytes Auto 0.03 Thou/mm3 (0.00-0.00); Lymphocytes # (Auto) 1.4 Thou/mm3 (1.0-4.8); Lymphocytes % (Auto) 19 % (10-50); Mean Corpuscular HGB Conc 36.7 g/dl (31.0-37.0); Mean Corpuscular Hemoglobin 29.9 pg (25.0-35.0); Mean Corpuscular Volume 82 fL (80-100); Monocytes # (Auto) 0.4 Thou/mm3 (0.0-0.8); Monocytes % (Auto) 5 % (0-12); Neutrophils # (Auto) 5.5 Thou/mm3 (1.8-7.7); Neutrophils % (Auto) 74 % (37-80); Nucleated Red Blood Cell % 0 /100 WBC (0); Platelet Count 120 Thou/mm3 (140-440); RDW Standard Deviation 35.8 fL (35.1-43.9); Red Blood Count 5.15 Miln/mm3 (4.50-5.90); White Blood Count 7.4 Thou/mm3 (3.8-10.6)
[2024-04-11 06:40] LABS: Alanine Aminotransferase 29 U/L (10-49); Albumin, Serum 4.5 gm/dL (3.5-5.0); Albumin/Globulin Ratio 2.1 (1.2-2.2); Alkaline Phosphatase 91 U/L (46-116); Anion Gap 8 (7-16); Aspartate Amino Transferase 19 U/L (0-34); BUN/Creatinine Ratio 10 Ratio (12-20); Bilirubin,Total 1.6 mg/dL (0.3-1.2); Blood Urea Nitrogen 10 mg/dL (9-23); Calcium 9.5 mg/dL (8.3-10.6); Calcium (Corrected) 9.5 mg/dL (8.5-10.1); Carbon Dioxide 26.9 mMol/L (20.0-31.0); Chloride 96 mMol/L (98-107); Estimated Creatinine Clearance 101.4 mL/min (>60); Free T4 (Free Thyroxine) 1.69 ng/dL (0.89-1.76); Globulin 2.1 gm/dL (2.3-3.5); Glucose 162 mg/dL (74-106); Magnesium 2.1 mg/dL (1.6-2.6); Osmolality,Calculated 265 (275-295); Phosphorous 3.2 mg/dL (2.4-5.1); Potassium 4.3 mMol/L (3.4-5.1); Sodium 131 mMol/L (136-145); Total Protein 6.6 gm/dL (5.7-8.2); eGFR > 60 See Note
--- NOTE | 2024-04-11 07:57 | ESPR_ITS ---
<Statement entered by Julius Del Rosario MD - 04/12/24 08:07> Patient was seen and examined by me personally. I agree with most of the assessment and plan as discussed with the architecture internship physician, and my attending, Dr. Harrison. Vitals, labs reviewed. Patient endorses abdominal pain. CIWA 5 at bedside, continue with protocol. Counseled extensively against using alcohol. Follow up EGD, continue octreotide x 5days. Elevated BP may be new onset hypertension vs elevation secondary to pain vs EtOH withdrawal. Julius Del Rosario MD, PGY-3 Documentation for date of: 04/11/24 Subjective Subjective Interval history: No acute overnight events. Nausea with eating, vomited x1 stomach content without blood. Pain relatively controlled with current regimen. Denies fever, chills, headaches, chest pain, sob, cough, other GI or urinary symptoms. CIWA 5, no withdrawal symptoms. Exam Vital Signs Temp Pulse Resp BP Pulse Ox O2 Del Method 97.7 F 89 19 138/102 H 98 Room Air 04/11/24 07:54 04/11/24 07:54 04/11/24 07:54 04/11/24 07:54 04/11/24 07:54 04/11/24 07:54 Narrative Exam GENERAL: Normal appearing adult male, mild distress due to pain. HEENT: NCAT.?SELVIN. Oral mucosa is moist. Patent Nares NECK: Supple, nontender, no thyromegaly, no meningismus, no JVD, no step offs CHEST: Symmetrical, atraumatic, and with equal expansion, Nontender on palpation no deformity and no crepitus. CARDIOVASCULAR: RRR, no m/g/r LUNGS: CTAB, no w/r/r. Symmetrical chest rise. No intercostal subcostal retraction. ABDOMEN: Soft, flat, nontender. No guarding/rebound tenderness/masses. +BS EXTREMITIES: Nontender.? No edema/cyanosis.?Moves all 4 extremities well, with full ROM and good CSM. SKIN: Warm and dry, no jaundice/rashes. MSK: No lumbar or midline, no CVA, no paraspinal muscle spasm or tenderness. NEURO: RAZA x4, CN II-XII grossly intact.?No focal neurologic deficits. PSYCHIATRIC: Normal mood and affect, cooperative, no SI or HI or hallucinations. Objective Labs 04/12/24 05:13 04/12/24 05:13 Labs: Laboratory Results - last 24 hr 04/11/24 05:36 WBC 7.4 RBC 5.15 Hgb 15.4 Hct 42.0 MCV 82 MCH 29.9 MCHC 36.7 RDW Std Deviation 35.8 Plt Count 120 L Neut % (Auto) 74 Lymph % (Auto) 19 [place] % (Auto) 5 Eos % (Auto) 1 Baso % (Auto) 0 Neut # (Auto) 5.5 Lymph # (Auto) 1.4 [place] # (Auto) 0.4 Eos # (Auto) 0.1 Baso # (Auto) 0.0 Immature Gran # (Auto) 0.03 H Absolute Nucleated RBC 0.00 Immature Gran % 0 Nucleated RBC % 0 Sodium 131 L Potassium 4.3 Chloride 96 L Carbon Dioxide 26.9 Anion Gap 8 BUN 10 Creatinine 1.0 Estim Creat Clear Calc 101.4 eGFR > 60 BUN/Creatinine Ratio 10 L Glucose 162 H Calculated Osmolality 265 L Calcium 9.5 Corrected Calcium 9.5 Phosphorus 3.2 Magnesium 2.1 Total Bilirubin 1.6 H AST 19 ALT 29 Alkaline Phosphatase 91 D Total Protein 6.6 Albumin 4.5 Globulin 2.1 L Albumin/Globulin Ratio 2.1 Free T4 1.69 Quality Measures Quality Measures none Assessment & Plan Assessment Current Active Medications: Generic Name Dose Route Start Last Admin Trade Name Freq PRN Reason Stop Dose Admin Acetaminophen 650 mg 04/09/24 20:19 Acetaminophen 325 Mg Tablet PO 05/09/24 20:18 Q6H PRN Pain (1-3) or Fever >100.3 Hydrocodone Bitart/Acetaminophen 1 tab 04/09/24 20:24 04/11/24 04:17 Hydrocodone/Apap 5/325 Tablet PO 04/14/24 20:23 1 tab Q4HR PRN Administration Pain Scale 4-10 (Moderate-donovan Folic Acid 1 mg 04/10/24 21:00 04/10/24 20:38 Folic Acid 1 Mg Tablet PO 05/10/24 20:59 1 mg BID YURIY Administration Octreotide Acetate 1,000 mcg/ 102 mls @ 5.1 mls/hr 04/10/24 17:29 04/10/24 18:03 Sodium Chloride IV 04/15/24 17:28 50 mcg/hr .Q20H YURIY 5.1 mls/hr Administration Protocol 50 MCG/HR Lisinopril 10 mg 04/10/24 17:15 04/10/24 18:01 Lisinopril 2.5 Mg Tablet PO 05/10/24 17:14 10 mg QDAY YURIY Administration Lorazepam 0.5 mg 04/09/24 20:47 04/10/24 18:01 Lorazepam 0.5 Mg Tablet PO 04/14/24 20:46 0.5 mg Q4HR PRN Administration CIWA Score 2-6 Lorazepam 1 mg 04/10/24 04:21 Lorazepam 0.5 Mg Tablet PO 04/15/24 04:20 Q4HR PRN CIWA SCORE 7-11 Lorazepam 2 mg 04/10/24 15:00 04/11/24 03:14 Lorazepam 0.5 Mg Tablet PO 04/15/24 14:59 2 mg Q6H YURIY Administration Ondansetron HCl 4 mg 04/09/24 20:19 04/10/24 17:42 Ondansetron Inj 2 Mg/Ml Inj 2 Ml IV 05/09/24 20:18 4 mg Q6H PRN Administration NAUSEA OR VOMITING Protocol Pantoprazole Sodium 40 mg 04/10/24 09:00 04/10/24 20:38 Pantoprazole Inj 40 Mg Vial IV 05/10/24 08:59 40 mg BID YURIY Administration Sennosides 1 tab 04/10/24 09:00 04/10/24 08:11 Senna Tablet PO 05/10/24 08:59 1 tab QDAY YURIY Administration Protocol Thiamine HCl 100 mg 04/10/24 21:00 04/10/24 20:38 Thiamine 100 Mg Tablet PO 05/10/24 20:59 100 mg BID YURIY Administration Plan In summary: 39-year-old male with a history of anxiety and alcohol use presented to the ED on 04/09/2024 with complaints of abdominal pain, nausea and vomiting started about 5 days ago, admitted for acute pancreatitis and possible GI bleed. Continued on fluids, persistent nausea and abdominal pain. Patient NPO for EGD with GI. # Acute pancreatitis # Alcohol use disorder Chronic alcohol user, daily, admitted to binge drinking last 5 days 5 days of abdominal pain, nausea and vomiting ground coffee emesis and dark stool U tox positive for opiates, alcohol 117.5 CT abdomen early pancreatitis, gallbladder ultrasound negative Triglyceride 394 Patient did not tolerate MORPHINE, preferred NORCO CIWA 5, no reported withdrawal symptoms ? Med/tele ? IV fluid at 150 cc/hour ? Continue ZOFRAN PRN ? Continue PROTONIX 40 mg daily ? CIWA protocol ? Given one-time LORAZEPAM for tremors ? Added DIAZEPAM 10 mg x 1 PRN for CIWA >17 ? Advance diet as tolerated ? Give banana bag one-time ? Consulted on alcohol cessation # Coffee-ground emesis 5 days abdominal pain, nausea/vomiting, ground coffee emesis Single episode of dark stool prior to admission, had normal BM this morning No history of liver disease, likely variceal bleed, no indication for OCTREOTIDE at this time Hemoglobin 14.2. NPO for EGD with GI today 04/11 ? Continue PROTONIX 40 mg daily ? Started OCTRIOTIDE ggt per GI ? GI following, appreciate recommendations ? Medical blood test # Elevated blood pressure No history of hypertension, BP 147/88 on admission, currently 140/91 DDx: Reactive versus primary hypertension ? Continue monitoring ? Consider ANTIHYPERTENSIVE as indicated # Euthyroid sick syndrome TSH 5.83, free T4 1.69 normal ? Follow-up PCP outpatient # ? New onset HTN vs Reactive BP consistently elevated, imporved with LISINOPRIL ? Started LISINOPRIL 10 mg daily ? Will consider adding AMLODIPINE if BP remains elevated ? Daily vitals Health maintenance Diet: NPO GI prophylaxis: PROTONIX DVT prophylaxis: SCDs Antibiotics: None CODE STATUS: Full code Disposition: Pending EGD Patient case was discussed with attending, Hipolito Harrison MD and senior residents Dr. Del Rosario and Dr. Croft. Rosa M Barber DO PGYI Attending Provider Attestation/Addendum I reviewed labs, imaging, EKG, home medications and prior available records. Face to face evaluation was performed by me. I have personally examined the patient and discussed assessment and plan with the IM team. I reviewed the resident note and agree with the plan with exceptions as below. Acute pancreatitis: Alcohol induced. Started IV hydration. Management of pain/nausea as needed. Counseled the patient regarding the importance of alcohol cessation. Upper GI bleed: Started the patient on PPI twice daily. Consulted GI for EGD. Started IV octreotide. Abnormal TSH: Ordered free T4. Alcohol withdrawal: Started the patient on CIWA protocol. Alcohol abuse: Counseled the patient regarding the importance of alcohol cessation. Start thiamine and folic acid.
[2024-04-11] MEDS: ONDANSETRON INJ 2 MG/ML INJ 2 ML 4 MG IV (08:00)
[2024-04-11] MEDS: THIAMINE 100 MG TABLET PO (08:50)
[2024-04-11] MEDS: Lisinopril 2.5 MG TABLET 10 MG PO (08:50)
[2024-04-11] MEDS: FOLIC ACID 1 MG TABLET PO (08:50)
[2024-04-11] MEDS: SENNA TABLET 1 TAB PO (08:50)
[2024-04-11] MEDS: PANTOPRAZOLE INJ 40 MG VIAL IV ×2 (08:50→20:46)
--- NOTE | 2024-04-11 11:42 | PC.SS ---
Patient is alert/oriented. at bedside. Patient lethargic but engaged. Responded appropriately to questions. Patient is independent with ADL's. He is employed. Patient was admitted for acute pancreatitis. Patient had high alcohol blood level. Patient states he's never been to any in patient or out patient alcohol rehab program. He asked if he wants resources. asked for resources for patient. Patient states he sees Dr. Dominguez and last appt. wa 2 months ago. Patient pharmacy: [facility]. D/c plan will be to return home. SS will provide a list of community resources for alcohol rehab. Patient states his , Earline, is the alt medical decision maker and she will transport patient home.
[2024-04-11] MEDS: SODIUM CHLORIDE 0.9% 1000 ML 1,000 ML 125 ML IV ×2 (11:58→20:46)
[2024-04-11] MEDS: OCTREOTIDE ACET INJ 1,000 MCG in SODIUM CHLORIDE 0.9% 100 ML 5.1 MCG IV (12:51)
--- NOTE | 2024-04-11 20:57 | PC.NURSE ---
To endoscopy via gurney.
--- NOTE | 2024-04-11 21:55 | PC.NURSE ---
Pt back to room via ama.
[2024-04-12] VITALS (9 sets, daily range): BP systolic 107–152; BP diastolic 64–101; PULSE 70–98; RESP 16–96; TEMP 36.1–36.8; O2SAT 97–99
[2024-04-12] MEDS: LORazepam 0.5 MG TABLET 2 MG PO ×2 (03:07→08:24)
--- NOTE | 2024-04-12 06:12 | PC.NURSE ---
Noticed patient's lips to be swollen, a little red, and shiny. No respiratory distress noted, VS stable: 137/94, 80, 97.1, 17, O2 sat 97% on room air. Dr. Pickens was made aware. MD will come and see patient.
[2024-04-12 06:14] LABS: Basophils % (Auto) 0 % (0-2.5); Eosinophils # (Auto) 0.1 Thou/mm3 (0.0-0.5); Eosinophils % (Auto) 2 % (0-10); Hematocrit 37.6 % (41.0-53.0); Hemoglobin 13.7 g/dL (13.5-16.0); Immature Granulocytes % (Auto) 0 % (0-0); Immature Granulocytes Auto 0.01 Thou/mm3 (0.00-0.00); Lymphocytes # (Auto) 1.5 Thou/mm3 (1.0-4.8); Lymphocytes % (Auto) 23 % (10-50); Mean Corpuscular HGB Conc 36.4 g/dl (31.0-37.0); Mean Corpuscular Hemoglobin 29.9 pg (25.0-35.0); Mean Corpuscular Volume 82 fL (80-100); Monocytes # (Auto) 0.4 Thou/mm3 (0.0-0.8); Monocytes % (Auto) 6 % (0-12); Neutrophils # (Auto) 4.4 Thou/mm3 (1.8-7.7); Neutrophils % (Auto) 69 % (37-80); Nucleated Red Blood Cell % 0 /100 WBC (0); Platelet Count 102 Thou/mm3 (140-440); RDW Standard Deviation 36.4 fL (35.1-43.9); Red Blood Count 4.58 Miln/mm3 (4.50-5.90); White Blood Count 6.4 Thou/mm3 (3.8-10.6)
[2024-04-12 06:37] LABS: Alanine Aminotransferase 21 U/L (10-49); Albumin, Serum 4.3 gm/dL (3.5-5.0); Alkaline Phosphatase 78 U/L (46-116); Anion Gap 6 (7-16); Aspartate Amino Transferase 16 U/L (0-34); BUN/Creatinine Ratio 7 Ratio (12-20); Bilirubin,Total 1.3 mg/dL (0.3-1.2); Blood Urea Nitrogen 7 mg/dL (9-23); Calcium 9.2 mg/dL (8.3-10.6); Calcium (Corrected) 9.2 mg/dL (8.5-10.1); Carbon Dioxide 28.4 mMol/L (20.0-31.0); Chloride 100 mMol/L (98-107); Estimated Creatinine Clearance 101.4 mL/min (>60); Globulin 2.1 gm/dL (2.3-3.5); Glucose 126 mg/dL (74-106); Osmolality,Calculated 268 (275-295); Phosphorous 3.4 mg/dL (2.4-5.1); Potassium 4.2 mMol/L (3.4-5.1); Sodium 134 mMol/L (136-145); Total Protein 6.4 gm/dL (5.7-8.2); eGFR > 60 See Note
[2024-04-12] MEDS: PANTOPRAZOLE INJ 40 MG VIAL IV (08:23)
[2024-04-12] MEDS: SODIUM CHLORIDE 0.9% 1000 ML 1,000 ML 125 ML IV (08:23)
[2024-04-12] MEDS: SENNA TABLET 1 TAB PO (08:24)
[2024-04-12] MEDS: THIAMINE 100 MG TABLET PO (08:24)
[2024-04-12] MEDS: Lisinopril 2.5 MG TABLET 10 MG PO (08:24)
[2024-04-12] MEDS: FOLIC ACID 1 MG TABLET PO (08:24)
[2024-04-12] MEDS: POLYETHYLENE GLYCOL 17 GM PACKET PO (10:25)
--- NOTE | 2024-04-12 11:19 | ESDS_ITS ---
<Statement entered by Jerry Croft MD - 04/12/24 11:56> Patient was examined with the team including attending physician. Note reviewed, I agree with the discharge plan as documented. - Jerry Croft MD, PGY 2 Planned Discharge Date 04/12/24 DS: Providers Provider Date of admission: 04/09/24 20:19 Primary care physician: Jana Dominguez MD Admitting Provider: Armando Post MD Attending Provider on Admission: Hipolito Harrison MD Consults: 04/10/24 06:39 Consult to Gastroenterology Routine Comment: Coffee ground emesis Consulting Provider: Samir Jacinto Consult to Gastroenterology Urgent Comment: coffee ground emesis Consulting Provider: Samir Jacinto Attending Provider on DC: Hipolito Harrison MD Discharging Provider: Hipolito Harrison MD DS: Diagnosis Problem List Completed Was Problem List Reviewed/Reconciled?: Yes Hospital Course Hospital Course Hospital course: This is a 39-year-old male with history of anxiety, alcohol dependency presented with abdominal pain and coffee-ground emesis, admitted for acute pancreatitis. Patient continued on fluids and pain control for pancreatitis. He was tolerating oral intake at the day of discharge. Recently, EGD was performed showing gastritis and esophageal ulcers with biopsy performed, without active bleeding. Patient will continue on PROTONIX until he follows up with GI outpatient. I recommended alcohol cessation with patient. Please discuss options with PCP. Hemoglobin remained within normal limits. No signs of bleeding throughout the course of stay. Patient stable at the time of discharge. Initially, patient found hypertensive with BP 150/100s which improved with LOSARTAN (possible angioedema 2/2 ACEi). Unclear if patient has untreated primary hypertension or reactive. Please continue LISINOPRIL until seen by primary care provider outpatient. PATIENT INSTRUCTIONS: Follow-up with PCP within 1 week of discharge Follow-up with GI, Dr. Jacinto, within 1-2 weeks of discharge for EGD and biopsy results Continue PROTONIX 40 mg BID Continue METOCLOPRAMIDE 10 mg p.o. every 6 hours for nausea Continue ACETAMINOPHEN 600 mg q.6 hours for pain Continue LOSARTAN 25 mg daily for hypertension, until you see your PCP Recommended low-fat diet until symptoms improved or seen by PCP Return to Emergency Room if symptoms persist, worsen, or new symptoms develop. ADMISSION DIAGNOSES: # Acute pancreatitis # Alcohol use disorder # Coffee-ground emesis # Elevated blood pressure # Euthyroid sick syndrome # ? New onset HTN vs Reactive Patient case was discussed with attending, Hipolito Harrison MD and senior residents Dr. Del Rosario and Dr. Croft. Rosa M Barber DO PGYI Time Spent with Patient Time attestation: Total time spent providing and/or coordinating discharge services: Greater than 35 minutes. Exam Vital Signs Temp Pulse Resp BP Pulse Ox O2 Del Method O2 Flow Rate 96.9 F 70 18 135/97 H 99 Room Air 3 04/12/24 08:00 04/12/24 09:47 04/12/24 08:49 04/12/24 08:24 04/12/24 08:00 04/12/24 04:00 04/11/24 21:25 Discharge Plan Plan Patient Disposition: HOME (Self Care) Patient condition on transfer: Stable Prescriptions/Referrals Prescriptions/Med Rec: New pantoprazole [Protonix] 40 mg tablet,delayed release (DR/EC) 40 mg PO BID 42 Days Qty: 84 0RF metoclopramide HCl 10 mg tablet 10 mg PO Q6H PRN (Reason: nausea and vomiting) Qty: 14 0RF losartan 25 mg tablet 25 mg PO QDAY 30 Days Qty: 30 1RF Referrals: Jana Dominguez MD [Primary Care Provider] - Patient/Caregiver Discharge Instructions Discharge Activity: activity as tolerated Other Discharge Activity Instructions:: Follow-up with PCP within 1 week of discharge Follow-up with GI, Dr. Jacinto, within 1-2 weeks of discharge for EGD and biopsy results Continue PROTONIX 40 mg BID Continue METOCLOPRAMIDE 10 mg p.o. every 6 hours for nausea Continue ACETAMINOPHEN 600 mg q.6 hours for pain Continue LOSARTAN 25 mg daily for hypertension, until you see your PCP (possible angioedema 2/2 ACEI) Continue low-fat diet until symptoms improve or cleared by PCP Return to Emergency Room if symptoms persist, worsen, or new symptoms develop. Education Materials: Low-Fat Cooking Tips, Upper GI Endoscopy, Treating Gastritis Print Language: Azeri Stand Alone Forms: Jocelin Award Info., Patient Portal Info Letter Discharge Order Discharge Orders: Discharge (Routine); Ordered 04/12/24 Ordered By: Rosa M Barber Quality Discharge Quality Measures VTE prophylaxis Attestestation MD Attestation I reviewed labs, imaging, EKG, home medications and prior available records. Face to face evaluation was performed by me. I have personally examined the patient and discussed assessment and plan with the IM team. I reviewed the resident note and agree with the plan with exceptions as below. Acute pancreatitis: Alcohol induced. Started IV hydration. Management of pain/nausea as needed. Counseled the patient regarding the importance of alcohol cessation. Upper GI bleed: Started the patient on PPI twice daily. Consulted GI for EGD. Started IV octreotide. Status post EGD that showed esophageal ulcers and gastric ulcer. Continue PPI twice daily. Abnormal TSH: Ordered free T4: WNL. Alcohol withdrawal: No signs of withdrawal on the day of discharge. Alcohol abuse: Counseled the patient regarding the importance of alcohol cessation. Start thiamine and folic acid. Time spent is 40 minutes. More than 50% of the time was spent on patient education and coordination of care.
[2024-04-12] MEDS: DiphenhydrAMINE ELIX 25 MG/10 ML UDC 6.25 MG PO (11:43)
[2024-04-12] MEDS: GLYCERIN, ADULT 1 EA SUPP 1 EACH PR (13:43)
[2024-04-12] MEDS: HYDROcodone/APAP 5/325 TABLET 1 TAB PO (15:17)
== END 2024-04-12 16:30 | disposition home or self-care (01) | DRG 438 ==
LOC: SERX 19:35 → SERHOLD 20:40 → S3SX 22:09
PROVIDERS: Nurse Practitioner Family; Specialist; Admitting Provider Internal Medicine; Emergency Provider Emergency Medicine; PCP Internal Medicine; Visit Provider Student in an Organized Health Care Education/Training Program
PROC: 0DB68ZX Excision of Stomach, Via Natural or Artificial Opening Endoscopic, Diagnostic (ICD-10-PCS; CPT 43239; principal; 2024-04-11 16:00)
DX: K85.20 Alcohol induced acute pancreatitis without necrosis or infection (principal); K22.11 Ulcer of esophagus with bleeding; K29.71 Gastritis, unspecified, with bleeding; F41.9 Anxiety disorder, unspecified; Z56.0 Unemployment, unspecified; Y90.5 Blood alcohol level of 100-119 mg/100 ml; E07.81 Sick-euthyroid syndrome; I10 Essential (primary) hypertension; F10.10 Alcohol abuse, uncomplicated; E03.9 Hypothyroidism, unspecified
CPT/HCPCS: 36415; 74177; 76705; 80053; 80061; 80307; 80320; 81001; 83690; 83735; 84100; 84439; 84443; 85025; 85610; 85730; 93005; 93225; 96361; 96374; 96375; 99285; A4649; J1200; J2060; J2250; J2270; J2354; J2405; J2470; J3010; J3360; J3475; J7030; J7050; Q9967; A9270; G0480

== ENCOUNTER → 2024-08-26 | Outpatient (CLI) | payer BC, SELFPAY ==
--- NOTE | 2024-08-26 10:19 | XR_ITS ---
Examination: Knee, left , 3 views Technique: Knee AP, lateral, oblique 3 views Date and time of exam: August 26, 2024 1156 hours INDICATIONS: Left knee swelling beginning 2 weeks ago. FINDINGS: Minimal narrowing medial joint space No fracture or dislocation Small knee effusion IMPRESSION: Minimal narrowing medial joint space No fracture or dislocation
== END | disposition home or self-care (01) ==
PROVIDERS: PCP Internal Medicine; Referring Provider Internal Medicine; Visit Provider Internal Medicine
DX: M25.862 Other specified joint disorders, left knee (principal)
CPT/HCPCS: 73562

== ENCOUNTER → 2024-10-26 | Outpatient (CLI) | payer BC, SELFPAY ==
--- NOTE | 2024-10-26 07:30 | XR_ITS ---
Exam: MRI knee without contrast, left Date and time of exam: October 26, 2024 0735 hours INDICATIONS: Knee pain joint clicking locking stiffness swelling instability beginning 3 months ago Technique: Multiple axial, coronal, and sagittal sections on the knee have been obtained. T2-Weighted sagittal, fat-suppressed images, TR 3,500, TE 62, T2 weighted coronal fat-saturated images, TR 3,500, TE 62 Proton density sagittal sections, TR 1800, TE 31. T-1 weighted coronal images, TR 524, TE 13.0 Findings: Medial meniscus anterior horn intact. Medial meniscus, body intact. Posterior horn medial meniscus horizontal linear tear communicating inferior articular surface, sagittal image 4. Lateral meniscus anterior horn is intact Lateral meniscus, body is intact Posterior horn lateral meniscus is intact Anterior cruciate ligament appears intact. Posterior cruciate ligament appears intact. Knee effusion is small. Quadriceps and patellar tendons appear intact. There is no evidence of tendinosis. Inflammatory change or fracture of Hoffa's fat pad is not seen. Medial patellar facet demonstrates no thinning. Lateral patellar facet cartilage demonstrates no thinning. Trochlear cartilage demonstrates no thinning. Marrow signal adequate. Medial collateral ligament appears intact. No meniscocapsular separation is seen. Illiotibial band and fibular collateral ligament are intact. Biceps femoris tendons appear intact. Medial femoral condylar articular cartilage demonstrates no thinning. Lateral femoral condylar articular cartilage demonstratesno thinning. Tibial plateau cartilage demonstrates no thinning. Impression: Horizontal linear tear posterior horn medial meniscus
== END | disposition home or self-care (01) ==
LOC: SMRI 06:59
PROVIDERS: PCP Internal Medicine; Referring Provider Orthopaedic Surgery; Visit Provider Orthopaedic Surgery
DX: S83.272A Complex tear of lateral meniscus, current injury, left knee, initial encounter (principal); X58.XXXA Exposure to other specified factors, initial encounter
CPT/HCPCS: 73721

== ENCOUNTER → 2025-02-23 | Outpatient (CLI) | payer BC, SELFPAY ==
[2025-02-23 08:57] LABS: Collection Type, Urine Clean Catch
[2025-02-23 09:22] LABS: Bilirubin,Urine Negative (Negative); Blood,Urine Negative (Negative); Clarity,Urine Clear (Clear/Hazy); Color,Urine Lt-Yellow (Lt Yel-Yel); Glucose, Urine Negative (Negative); Ketones,Urine Negative (Negative); Leukocyte Esterase,Urine Negative (Negative); Nitrite,Urine Negative (Negative); PH,Urine 7.0 (5.0-7.0); Protein,Urine Negative (Neg - Trace); RBC,Urine 2 /hpf (0-3); Specific Gravity,Urine 1.011 (1.001-1.035); Squamous Epithelial Cell,Urine 1 /hpf (0-5); Urobilinogen,Urine Negative mg/dL (0.0-1.0); WBC,Urine 1 /hpf (0-5)
[2025-02-23 09:23] LABS: Basophils # (Auto) 0.1 Thou/mm3 (0.0-0.2); Basophils % (Auto) 1 % (0-2.5); Eosinophils # (Auto) 0.2 Thou/mm3 (0.0-0.5); Eosinophils % (Auto) 4 % (0-10); Hematocrit 43.4 % (41.0-53.0); Hemoglobin 14.6 g/dL (13.5-16.0); Immature Granulocytes Auto 0.01 Thou/mm3 (0.00-0.00); Lymphocytes # (Auto) 1.9 Thou/mm3 (1.0-4.8); Lymphocytes % (Auto) 38 % (10-50); Mean Corpuscular HGB Conc 33.6 g/dl (31.0-37.0); Mean Corpuscular Hemoglobin 29.6 pg (25.0-35.0); Mean Corpuscular Volume 88 fL (80-100); Monocytes # (Auto) 0.3 Thou/mm3 (0.0-0.8); Monocytes % (Auto) 5 % (0-12); Neutrophils # (Auto) 2.6 Thou/mm3 (1.8-7.7); Neutrophils % (Auto) 52 % (37-80); Nucleated Red Blood Cell # 0.00 Thou/mm3 (0.00-0.00); Nucleated Red Blood Cell % 0 /100 WBC (0); Platelet Count 217 Thou/mm3 (140-440); RDW Standard Deviation 39.0 fL (35.1-43.9); Red Blood Count 4.94 Miln/mm3 (4.50-5.90); White Blood Count 5.1 Thou/mm3 (3.8-10.6)
[2025-02-23 09:34] LABS: Glucose Estimated Average 105 mg/dL (80-131); Hemoglobin A1C 5.3 % Hgb (4.8-6.0)
[2025-02-23 09:37] LABS: Alanine Aminotransferase 66 U/L (10-49); Albumin, Serum 4.8 gm/dL (3.5-5.0); Albumin/Globulin Ratio 2.8 (1.2-2.2); Alkaline Phosphatase 49 U/L (46-116); Anion Gap 8 (7-16); Aspartate Amino Transferase 46 U/L (0-34); BUN/Creatinine Ratio 13 Ratio (12-20); Bilirubin,Total 0.8 mg/dL (0.3-1.2); Blood Urea Nitrogen 14 mg/dL (9-23); Calcium 9.6 mg/dL (8.3-10.6); Calcium (Corrected) 9.6 mg/dL (8.5-10.1); Carbon Dioxide 29.1 mMol/L (20.0-31.0); Cardiac Risk Estimate 3.0 RATIO (4.0-6.7); Chloride 104 mMol/L (98-107); Cholesterol 169 mg/dL (132-200); Creatinine (Component) 1.1 mg/dL (0.6-1.3); Globulin 1.7 gm/dL (2.3-3.5); Glucose 100 mg/dL (74-106); HDL Cholesterol 57 mg/dL (40-60); LDL Cholesterol,Calculated 101 mg/dL (0-130); Osmolality,Calculated 281 (275-295); Potassium 5.3 mMol/L (3.4-5.1); Sodium 141 mMol/L (136-145); Total Protein 6.5 gm/dL (5.7-8.2); Triglycerides 53 mg/dL (30-150); Uric Acid 6.7 mg/dL (3.7-9.2); eGFR > 60 See Note
[2025-02-23 09:38] LABS: Thyroid Stimulating Hormone 1.93 uIU/mL (0.55-4.78)
[2025-02-23 09:50] LABS: Vitamin B12 647 pg/mL (211-911); Vitamin D 25 Hydroxy Total 38.3 ng/mL (7.3-40.2)
== END | disposition home or self-care (01) ==
LOC: COPL 08:38
PROVIDERS: PCP Internal Medicine; Referring Provider Internal Medicine; Visit Provider Internal Medicine
DX: Z00.00 Encounter for general adult medical examination without abnormal findings (principal)
CPT/HCPCS: 36415; 80053; 80061; 81001; 82306; 82607; 83036; 84443; 84550; 85025